=== PATIENT | male | born 1995 | race African-American/Black ===

== ENCOUNTER 2018-06-02 21:01 | Emergency (ER) | payer MEDICAID ==
[~2018-06-02] VITALS: Ht 170.2 cm; Wt 87.0 kg
[2018-06-02 23:15] VITALS: BP 119/71
== END 2018-06-02 23:16 | disposition home or self-care (01) ==
LOC: ER 21:24
DX: R91.8 Other nonspecific abnormal finding of lung field (principal); J45.909 Unspecified asthma, uncomplicated
CPT/HCPCS: 71045; 99283